=== PATIENT | male | born 1955 | race Caucasian/White ===

== ENCOUNTER 2017-10-29 09:58 | Outpatient (RCR) ==
[2017-10-29 10:36] VITALS: TEMP 97.8; BMI 28.2
[2017-11-06 11:15] VITALS: BP 118/54
== END 2017-11-07 23:59 ==
LOC: CAR.REHAB 09:58
DX: I25.10 Atherosclerotic heart disease of native coronary artery without angina pectoris (principal)
CPT/HCPCS: 93798

== ENCOUNTER 2017-11-01 08:34 | Outpatient (CLI) | END 2017-11-01 08:35 | disposition home or self-care (01) | LOC: LAB 08:34 | DX: E11.9 Type 2 diabetes mellitus without complications (principal); E29.9 Testicular dysfunction, unspecified | CPT/HCPCS: 36415; 80053; 81001; 82043; 82570; 83036; 84156; 84402; 84403 ==

== ENCOUNTER 2017-11-08 07:54 | Outpatient (RCR) ==
[2017-11-21 09:31] VITALS: BP 112/64
== END 2017-12-07 23:59 ==
LOC: CAR.REHAB 07:54
DX: I25.10 Atherosclerotic heart disease of native coronary artery without angina pectoris (principal)
CPT/HCPCS: 93798

== ENCOUNTER 2017-12-09 06:48 | Outpatient (RCR) | END 2017-12-24 08:42 | disposition home or self-care (01) | LOC: CAR.REHAB 06:48 | DX: I25.10 Atherosclerotic heart disease of native coronary artery without angina pectoris (principal) ==

== ENCOUNTER 2018-02-28 13:57 | Outpatient (CLI) | END 2018-02-28 13:58 | disposition home or self-care (01) | LOC: FCC-LAB 13:57 | PROVIDERS: ATTEND Family Medicine | DX: R30.0 Dysuria (principal) | CPT/HCPCS: 87086 ==